=== PATIENT | female | born 1985 | race Caucasian/White ===

== ENCOUNTER 2017-12-04 08:13 | Observation (INO) | payer OTHER ==
[~2017-12-04] VITALS: Ht 170.2 cm; Wt 70.0 kg
[~2017-12-04 08:13] MED LIST: CHLO500T4 PO; META800T PO; NORG1TAB14 PO; ONDA8TAB6 PO; OXYC1TAB12 PO; TRAM50TA2 PO
--- OUTSIDE RECORDS SUMMARY | 2017-12-04 08:19 | XMS REPORT ---
Author Author JODI SOUZA Organization [employer] Address Unknown Phone Unavailable Care Team Providers Care Tie In Hand Name Role Phone JODI SOUZA CP Unavailable Allergies, Adverse Reactions, Alerts Substance Reaction Event Type N.K.D.A. Info Not Available Non Drug Allergy Problems Problem Type Condition Code Onset Dates Condition Status Assessment Contact with or exposure to sexually transmitted disease Z20.2 Active Medications Medication Code System Code Instructions Start Date End Date Status Dosage Chlorzoxazone [facility] [address]-54 not defined Metaxalone [facility] [address]-47 not defined Zofran [facility] [address]-81 not defined Procedures Procedure Coding System Code Date Office Visit, Est Pt., Level 3 CPT-4 18794 August 07, 2015 No Charge CPT-4 71978 August 07, 2015 Vital Signs Date/Time: August 07, 2015 Temperature 99.2 F Weight 146.8 lbs Height 67 in BMI 22.99 Index Blood Pressure Diastolic 82 mmHg Blood Pressure Systolic 128 mmHg Cardiac Monitoring Heart Rate 80 bpm Results No Known Results Summary Purpose [employer] Submission
--- OUTSIDE RECORDS SUMMARY | 2017-12-04 08:19 | XMS REPORT | Continuity of Care Document ---
Author Author [facility] Organization [facility] Address Unknown Phone Unavailable Allergies Active Description Code Type Severity Reaction Onset Reported/Identified Relationship to Patient Clinical Status Yes No Known Drug Allergies [id number] Drug Allergy Unknown N/A 07/20/2007 Medications There is no data. Problems Date Dx Coded Attending Type Code Diagnosis Diagnosed By 12/04/2015 WONG MATA MD, Ot D64.9 ANEMIA, UNSPECIFIED 12/04/2015 WONG MATA MD Ot N92.0 EXCESSIVE AND FREQUENT MENSTRUATION WITH 12/04/2015 WONG MATA MD Ot Z01.812 ENCOUNTER FOR PREPROCEDURAL LABORATORY E 12/04/2015 WONG MATA MD Ot Z11.2 ENCOUNTER FOR SCREENING FOR OTHER BACTER 12/05/2015 WONG MATA MD, Ot D64.9 ANEMIA, UNSPECIFIED 12/05/2015 WONG MATA MD Ot N92.0 EXCESSIVE AND FREQUENT MENSTRUATION WITH 12/05/2015 WONG MATA MD Ot Z01.812 ENCOUNTER FOR PREPROCEDURAL LABORATORY E 12/05/2015 WONG MATA MD Ot Z11.2 ENCOUNTER FOR SCREENING FOR OTHER BACTER 12/05/2015 WONG MATA MD Ot N92.0 EXCESSIVE AND FREQUENT MENSTRUATION WITH 12/05/2015 WONG MATA MD Ot N93.8 OTHER SPECIFIED ABNORMAL UTERINE AND VAG 12/08/2015 WONG MATA MD Ot N92.0 EXCESSIVE AND FREQUENT MENSTRUATION WITH 12/08/2015 WONG MATA MD Ot N93.8 OTHER SPECIFIED ABNORMAL UTERINE AND VAG Procedures There is no data. Results Test Result Range Complete blood count (CBC) with automated white blood cell (WBC) differential - 12/04/15 15:50 Blood leukocytes automated count (number/volume) 6.5 10*3/uL 4.3-11.0 Blood erythrocytes automated count (number/volume) 2.73 10*6/uL 4.35-5.85 Venous blood hemoglobin measurement (mass/volume) 7.9 g/dL 11.5-16.0 Blood hematocrit (volume fraction) 25 % 35-52 Automated erythrocyte mean corpuscular volume 91 [foz_us] 80-99 Automated erythrocyte mean corpuscular hemoglobin (mass per erythrocyte) 29 pg 25-34 Automated erythrocyte mean corpuscular hemoglobin concentration measurement ( mass/volume) 32 g/dL 32-36 Automated erythrocyte distribution width ratio 14.4 % 10.0-14.5 Automated blood platelet count (count/volume) 229 10*3/uL 130-400 Automated blood platelet mean volume measurement 9.1 [foz_us] 7.4-10.4 Automated blood neutrophils/100 leukocytes 65 % 42-75 Automated blood lymphocytes/100 leukocytes 27 % 12-44 Blood monocytes/100 leukocytes 6 % 0-12 Automated blood eosinophils/100 leukocytes 2 % 0-10 Automated blood basophils/100 leukocytes 0 % 0-10 Blood neutrophils automated count (number/volume) 4.3 10*3 1.8-7.8 Blood lymphocytes automated count (number/volume) 1.8 10*3 1.0-4.0 Blood monocytes automated count (number/volume) 0.4 10*3 0.0-1.0 Automated eosinophil count 0.1 10*3/uL 0.0-0.3 Automated blood basophil count (count/volume) 0.0 10*3/uL 0.0-0.1 Methicillin resistant Staphylococcus aureus (MRSA) screening culture - 15:50 Methicillin resistant Staphylococcus aureus (MRSA) screening culture NEG NRG Encounters ACCT No. Visit Date/Time Discharge Status Pt. Type Provider Facility Loc./Unit Complaint [id number] 12/05/2015 13:20:00 12/05/2015 17:50:00 DIS Outpatient WONG MATA MD [facility] DUB;MENORRAGIA [id number] 12/04/2015 15:33:00 12/04/2015 15:55:00 DIS Outpatient WONG MATA MD [facility] DUB;MENORRAGIA [id number] 10/07/2012 12:35:00 10/07/2012 23:59:59 CLS Outpatient [id number] 10/05/2012 14:05:00 10/05/2012 23:59:59 CLS Outpatient
--- NOTE | 2017-12-04 09:22 | ED Abdominal Pain ---
General Chief Complaint: Abdominal/GI Problems Stated Complaint: N/V X2 DAYS Nursing Triage Note: Pt ambulated to rm 7 w/o difficulty. Pt c/o N/V with severe abdominal and back pain for the last two days. Pt states she had diarrhea on the first day. Pt is unsure if she has had fever. Pt states she has had periods of sweats and chills. No fever at time of assessment. Sepsis Screen: No Definite Risk Source of Information: Patient, Family Exam Limitations: No Limitations History of Present Illness Date Seen by Provider: Dec 04, 2017 Time Seen by Provider: 09:19 Initial Comments This 32-year-old white female presents with complaint of diffuse abdominal pain has been present for the last 3 days. The patient has had associated persistent nausea and vomiting. She has had no associated fever, chill, cough, shortness of breath, diarrhea, hematemesis or melena, dysuria, frequency, or flank pain. Patient status post appendectomy. The patient is concerned that she has possible gallbladder disease as this is common within the family. Allergies and Home Medications Allergies Coded Allergies: No Known Drug Allergies (Verified Allergy, Unknown, 07/20/07) Home Medications Chlorzoxazone 500 Mg Tablet, 500 MG PO DAILY, (Reported) Metaxalone 800 Mg Tablet, 800 MG PO DAILY, (Reported) Norgestimate-Ethinyl Estradiol 1 Each Tablet, 1 EACH PO DAILY, (Reported) Ondansetron HCl 8 Mg Tablet, 8 MG PO TID PRN for NAUSEA/VOMITING, (Reported) Oxycodone HCl/Acetaminophen 1 Each Tablet, 1-2 TAB PO Q4H PRN for PAIN Prescribed by: WONG DEJESUS on 12/05/15 1157 Tramadol HCl 50 Mg Tablet, 50 MG PO Q6H PRN for PAIN, (Reported) Patient Home Medication List Home Medication List Reviewed: Yes Review of Systems Constitutional: No chills, No fever EENTM: No Blurred Vision Respiratory: Denies Cough Cardiovascular: Denies Chest Pain Gastrointestinal: Abdominal Pain (across the midepigastrium from left to right. ); Denies Diarrhea; Nausea, Vomiting Genitourinary: No Symptoms Reported Musculoskeletal: no symptoms reported Skin: no symptoms reported Psychiatric/Neurological: No Symptoms Reported Endocrine: No Symptoms Reported Hematologic/Lymphatic: No Symptoms Reported Past Pybatme-Xvmfuy-Owoipe Hx Past Med/Social Hx: Reviewed Nursing Past Med/Soc Hx Patient Social History Alcohol Use: Denies Use Recreational Drug Use: No Smoking Status: Current Everyday Smoker Type Used: Cigarettes Recent Foreign Travel: No Contact w/Someone Who Travel: No Recent Infectious Disease Expo: No Recent Hopitalizations: Yes ( of children ) Physical Abuse: No Sexual Abuse: No Past Medical History Surgeries: Yes (breast augmentation, ) Respiratory: No Cardiac: No Neurological: Yes : No Last Menstrual Period: Nov 29, 2017 Reproductive Disorders: Yes Gastrointestinal: No Musculoskeletal: No Endocrine: No Cancer: No Psychosocial: No Nursing Suicide Risk Score: 0 Integumentary: No Blood Disorders: No Adverse Reaction/Blood Tranf: No Physical Exam Vital Signs Vital Signs - First Documented 12/04/17 08:30 Temp 96.8 Pulse 98 Resp 20 B/P (MAP) 154/101 (118) Pulse Ox 100 O2 Delivery Room Air Capillary Refill : Less Than 3 Seconds Height/Weight/BMI Height: 5'7.00" Weight: 150lbs. 0.0oz. 68.556642ap; 24.63 BMI Method:Estimated General Appearance: WD/WN, moderate distress HEENT: normal ENT inspection Neck: supple, normal inspection Respiratory: lungs clear Cardiovascular: normal peripheral pulses, regular rate, rhythm Gastrointestinal: normal bowel sounds, tenderness (over the epigastric area) Extremities: normal range of motion, non-tender, normal inspection Back: normal inspection Neurologic/Psychiatric: no motor/sensory deficits, alert, normal mood/affect Skin: normal color, warm/dry Progress/Results/Core Measures Results/Orders Lab Results Laboratory Tests Test 12/04/17 08:37 12/04/17 10:00 Range/Units White Blood Count 7.0 4.3-11.0 10^3/uL Red Blood Count 4.43 4.35-5.85 10^6/uL Hemoglobin 13.2 11.5-16.0 G/DL Hematocrit 40 35-52 % Mean Corpuscular Volume 90 80-99 FL Mean Corpuscular Hemoglobin 30 25-34 PG Mean Corpuscular Hemoglobin Concent 33 32-36 G/DL Red Cell Distribution Width 13.7 10.0-14.5 % Platelet Count 277 130-400 10^3/uL Mean Platelet Volume 9.4 7.4-10.4 FL Neutrophils (%) (Auto) 81 H 42-75 % Lymphocytes (%) (Auto) 12 12-44 % Monocytes (%) (Auto) 6 0-12 % Eosinophils (%) (Auto) 1 0-10 % Basophils (%) (Auto) 0 0-10 % Neutrophils # (Auto) 5.6 1.8-7.8 X 10^3 Lymphocytes # (Auto) 0.8 L 1.0-4.0 X 10^3 Monocytes # (Auto) 0.5 0.0-1.0 X 10^3 Eosinophils # (Auto) 0.1 0.0-0.3 10^3/uL Basophils # (Auto) 0.0 0.0-0.1 10^3/uL Sodium Level 137 135-145 MMOL/L Potassium Level 3.4 L 3.6-5.0 MMOL/L Chloride Level 104 98-107 MMOL/L Carbon Dioxide Level 22 21-32 MMOL/L Anion Gap 11 5-14 MMOL/L Blood Urea Nitrogen 9 7-18 MG/DL Creatinine 0.79 0.60-1.30 MG/DL Estimat Glomerular Filtration Rate > 60 BUN/Creatinine Ratio 11 Glucose Level 124 H 70-105 MG/DL Calcium Level 9.4 8.5-10.1 MG/DL Corrected Calcium 8.5-10.1 MG/DL Total Bilirubin 0.3 0.1-1.0 MG/DL Aspartate Amino Transf (AST/SGOT) 25 5-34 U/L Alanine Aminotransferase (ALT/SGPT) 20 0-55 U/L Alkaline Phosphatase 61 40-136 U/L Total Protein 7.8 6.4-8.2 GM/DL Albumin 4.8 H 3.2-4.5 GM/DL Lipase 4893 H 8-78 U/L Serum Test, Qualitative NEGATIVE NEGATIVE Urine Test NEGATIVE NEGATIVE My Orders Orders - KARLI MANE MD Ns Iv 1000 Ml (Sodium Chloride 0.9%) (12/04/17 09:30) Ondansetron Injection (Zofran Injectio (12/04/17 09:30) Fentanyl Injection (Sublimaze Injection (12/04/17 09:30) Cbc With Automated Diff (12/04/17:17) Comprehensive Metabolic Panel (12/04/17 09:17) Ua Culture If Indicated (8/19/18 09:17) Lipase (12/04/17 09:17) Hcg,Qualitative Urine (12/04/17 09:17) Diphenhydramine Injection (Benadryl Inje (12/04/17 10:15) Prochlorperazine Injection (Compazine In (12/04/17 10:15) Ct Abdomen/Pelvis W (12/04/17 10:17) Iohexol Injection (Omnipaque 350 Mg/Ml 1 (12/04/17 10:30) Sodium Chloride Flush (Catheter Flush Sy (12/04/17 10:30) Ns (Ivpb) (Sodium Chloride 0.9%) (12/04/17 10:30) Pharmacy Communication (Pharmacy Communi (12/04/17 10:25) Hcg,Qualitative Serum (12/04/17 10:35) Hydromorphone Injection (Dilaudid Inject (12/04/17 11:30) Medications Given in ED Current Medications Medications Dose Ordered Sig/Wilber Route Start Time Stop Time Status Last Admin Dose Admin Diphenhydramine HCl 25 mg ONCE ONCE IM 12/04/17 10:15 12/04/17 10:16 DC 12/04/17 10:12 25 MG Fentanyl Citrate 50 mcg ONCE ONCE IVP 12/04/17 09:30 12/04/17 09:31 DC 12/04/17 09:24 50 MCG Hydromorphone HCl 1 mg ONCE ONCE IV 12/04/17 11:30 12/04/17 11:31 DC 12/04/17 11:33 1 MG Iohexol 100 ml ONCE ONCE IV 12/04/17 10:30 12/04/17 10:31 DC 12/04/17 10:51 100 ML Ondansetron HCl 4 mg ONCE ONCE IVP 12/04/17 09:30 12/04/17 09:31 DC 12/04/17 09:24 4 MG Prochlorperazine Edisylate 10 mg ONCE ONCE IV 12/04/17 10:15 12/04/17 10:16 DC 12/04/17 10:12 10 MG Sodium Chloride 10 ml NEEDED PRN IV 12/04/17 10:30 12/04/17 10:51 10 ML Sodium Chloride 250 ml ONCE ONCE IV 12/04/17 10:30 12/04/17 10:31 DC 12/04/17 10:51 80 ML Vital Signs/I&O 12/04/17 08:30 Temp 96.8 Pulse 98 Resp 20 B/P (MAP) 154/101 (118) Pulse Ox 100 O2 Delivery Room Air Blood Pressure Mean: 118 Progress Progress Note : Time: 12:04 Progress Note The patient's laboratory evaluation demonstrated a lipase of nearly 5000. The remainder of the laboratory evaluation was essentially unremarkable. CT of the abdomen and pelvis with contrast failed to demonstrate evidence of acute pathology. Treatment course: The patient received IV normal saline, narcotics, and anti-emetics IV. The patient's pain was quite severe after having no improvement in the pain with fentanyl I gave the patient a milligram of Dilaudid IV. I placed call Dr. Adler for his assistance in further evaluation and care of this patient. Departure Communication (Admissions) Time/Spoke to Admitting Phy: 12:06 Dr. Adler was kind enough to admit the patient. Impression Primary Impression: Pancreatitis Qualified Codes: K85.00 - Idiopathic acute pancreatitis without necrosis or infection Disposition: ADMITTED INPATIENT Condition: Improved Admissions Decision to Admit Reason: Admit from ER (General) Decision to Admit/Date: Dec 04, 2017 Time/Decision to Admit Time: 12:06 Departure-Patient Inst. Referrals: JOSE GIMENEZ MD (PCP/Family) Primary Care Physician KARLI MANE MD Dec 04, 2017 09:22
[2017-12-04 09:27] LABS: BASOPHILS % (AUTO) 0 % (0-10); EOSINOPHILS # (AUTO) 0.1 10^3/uL (0.0-0.3); EOSINOPHILS % (AUTO) 1 % (0-10); HEMATOCRIT 40 % (35-52); HEMOGLOBIN 13.2 G/DL (11.5-16.0); LYMPHOCYTES # (AUTO) 0.8 X 10^3 (1.0-4.0); LYMPHOCYTES % (AUTO) 12 % (12-44); MEAN CORPUSCULAR HEMOGLOBIN 30 PG (25-34); MEAN CORPUSCULAR HGB CONC 33 G/DL (32-36); MEAN CORPUSCULAR VOLUME 90 FL (80-99); MEAN PLATELET VOLUME 9.4 FL (7.4-10.4); MONOCYTES # (AUTO) 0.5 X 10^3 (0.0-1.0); MONOCYTES % (AUTO) 6 % (0-12); NEUTROPHILS # (AUTO) 5.6 X 10^3 (1.8-7.8); NEUTROPHILS % (AUTO) 81 % (42-75); PLATELET COUNT 277 10^3/uL (130-400); RED BLOOD COUNT 4.43 10^6/uL (4.35-5.85); RED CELL DISTRIBUTION WIDTH 13.7 % (10.0-14.5)
[2017-12-04] MEDS ORDERED: ONDANSETRON 4 MG/2 ML (SDV) Z0FRAN IVP ONE (09:30)
[2017-12-04] MEDS ORDERED: NS IV 1000 ML 1,000 ML IV SCH (09:30)
[2017-12-04] MEDS ORDERED: fentaNYL INJECTION 100 MCG/2 ML AMP IVP ONE (09:30)
[2017-12-04 09:40] LABS: ALANINE AMINOTRANSFERASE 20 U/L (0-55); ALBUMIN 4.8 GM/DL (3.2-4.5); ALKALINE PHOSPHATASE 61 U/L (40-136); BILIRUBIN,TOTAL 0.3 MG/DL (0.1-1.0); BUN/CREATININE RATIO 11; CALCIUM 9.4 MG/DL (8.5-10.1); CARBON DIOXIDE 22 MMOL/L (21-32); CHLORIDE 104 MMOL/L (98-107); CREATININE SERUM 0.79 MG/DL (0.60-1.30); GFR ESTIMATED > 60; GLUCOSE 124 MG/DL (70-105); POTASSIUM 3.4 MMOL/L (3.6-5.0); SODIUM 137 MMOL/L (135-145); TOTAL PROTEIN 7.8 GM/DL (6.4-8.2)
[2017-12-04] MEDS ORDERED: PROCHLORPERAZINE 10 MG/2ML INJ (COMPAZINE) IV ONE ×2 (10:15→22:30)
[2017-12-04] MEDS ORDERED: diphenhydrAMINE 50 MG/ML INJ (BENADRYL) IM ONE (10:15)
[2017-12-04] MEDS ORDERED: IOHEXOL 350 MG/ML 100 ML (OMNIPAQUE 350) VIAL IV ONE (10:30)
[2017-12-04] MEDS ORDERED: NS 250 ML (IVPB) BAG IV ONE (10:30)
[2017-12-04] MEDS ORDERED: CATHETER FLUSH 10 ML SYR IV PRN (10:30)
[2017-12-04] MEDS ORDERED: HYDROmorphone 2 MG/ML VIAL (DILAUDID) IV ONE (11:30)
--- NOTE | 2017-12-04 11:30 | Diagnostic Imaging Report ---
PROCEDURE: CT abdomen and pelvis with contrast. TECHNIQUE: Multiple contiguous axial images were obtained through the abdomen and pelvis after administration of intravenous contrast. INDICATION: Nausea, vomiting, diarrhea for 3 days with stomach cramping and back pain. History of appendectomy COMPARISON: 02/12/2009 FINDINGS: Lung bases are clear. The heart is normal in size. No liver lesions are seen. The spleen demonstrates heterogeneous perfusion, but is otherwise unremarkable. The adrenal glands and pancreas appears normal. The kidneys appear normal with no hydronephrosis seen. The bowel loops are nondistended without evidence of obstruction. A small amount of free fluid is in the pelvis. There is no free air. A small involuting follicle is seen in the right ovary measuring 1.4 cm. No acute osseous abnormality seen. IMPRESSION: 1. Small involuting follicle in the right ovary with a small amount of free fluid. 2. No other acute abnormality seen in the abdomen or pelvis. Dictated by: Dictated on workstation # [id number]
[2017-12-04 12:35] VITALS: BP 136/78
[2017-12-04] MEDS: NS IV 1000 ML 1,000 ML IV SCH ×2 (13:41→22:09)
[2017-12-04 13:48] LABS: LIPASE 34 U/L (8-78)
[2017-12-04] MEDS ORDERED: ASCO-262 PO (14:05)
[2017-12-04] MEDS ORDERED: ASCO500T6 PO (14:06)
[2017-12-04] MEDS ORDERED: TUMERIC PO (14:06)
[2017-12-04 16:00] VITALS: BP 120/56
[2017-12-04] MEDS: ONDANSETRON 4 MG/2 ML (SDV) Z0FRAN IV PRN ×2 (16:06→20:40)
[2017-12-04] MEDS: HYDROmorphone 2 MG/ML VIAL (DILAUDID) IV PRN ×2 (16:06→20:40)
[2017-12-04 20:49] VITALS: BP 128/83
[2017-12-04] MEDS ORDERED: diphenhydrAMINE 50 MG/ML INJ (BENADRYL) IVP ONE (22:30)
[2017-12-04] MEDS ORDERED: diphenhydrAMINE 50 MG/ML INJ (BENADRYL) ONE (22:56)
[2017-12-04] MEDS ORDERED: PROCHLORPERAZINE 10 MG/2ML INJ (COMPAZINE) ONE (23:09)
[2017-12-05 00:19] VITALS: BP 151/66
[2017-12-05] MEDS: HYDROmorphone 2 MG/ML VIAL (DILAUDID) IV PRN ×2 (01:37→06:21)
[2017-12-05] MEDS: ONDANSETRON 4 MG/2 ML (SDV) Z0FRAN IV PRN ×3 (01:39→12:19)
[2017-12-05 04:32] VITALS: BP 129/77
[2017-12-05 05:55] LABS: BASOPHILS % (AUTO) 1 % (0-10); EOSINOPHILS # (AUTO) 0.1 10^3/uL (0.0-0.3); EOSINOPHILS % (AUTO) 2 % (0-10); HEMATOCRIT 31 % (35-52); HEMOGLOBIN 10.3 G/DL (11.5-16.0); LYMPHOCYTES # (AUTO) 1.3 X 10^3 (1.0-4.0); LYMPHOCYTES % (AUTO) 30 % (12-44); MEAN CORPUSCULAR HEMOGLOBIN 31 PG (25-34); MEAN CORPUSCULAR HGB CONC 34 G/DL (32-36); MEAN CORPUSCULAR VOLUME 91 FL (80-99); MEAN PLATELET VOLUME 9.5 FL (7.4-10.4); MONOCYTES # (AUTO) 0.4 X 10^3 (0.0-1.0); MONOCYTES % (AUTO) 9 % (0-12); NEUTROPHILS # (AUTO) 2.4 X 10^3 (1.8-7.8); NEUTROPHILS % (AUTO) 58 % (42-75); PLATELET COUNT 211 10^3/uL (130-400); RED BLOOD COUNT 3.35 10^6/uL (4.35-5.85); RED CELL DISTRIBUTION WIDTH 13.1 % (10.0-14.5); WHITE BLOOD COUNT 4.2 10^3/uL (4.3-11.0)
[2017-12-05 06:15] LABS: ALANINE AMINOTRANSFERASE 15 U/L (0-55); ALBUMIN 3.6 GM/DL (3.2-4.5); ALKALINE PHOSPHATASE 42 U/L (40-136); BILIRUBIN,TOTAL 0.3 MG/DL (0.1-1.0); BUN/CREATININE RATIO 7; CALCIUM 8.2 MG/DL (8.5-10.1); CARBON DIOXIDE 22 MMOL/L (21-32); CHLORIDE 110 MMOL/L (98-107); CREATININE SERUM 0.67 MG/DL (0.60-1.30); GFR ESTIMATED > 60; GLUCOSE 99 MG/DL (70-105); LIPASE 24 U/L (8-78); POTASSIUM 3.6 MMOL/L (3.6-5.0); SODIUM 138 MMOL/L (135-145); TOTAL PROTEIN 5.7 GM/DL (6.4-8.2)
[2017-12-05] MEDS: NS IV 1000 ML 1,000 ML IV SCH ×2 (06:19→13:53)
[2017-12-05] MEDS: PROCHLORPERAZINE 10 MG/2ML INJ (COMPAZINE) IV PRN ×2 (06:20→15:45)
[2017-12-05 08:00] VITALS: BP 118/60
[2017-12-05] MEDS ORDERED: KETOROLAC 30 MG/ML VIAL IVP NR (08:21)
[2017-12-05] MEDS ORDERED: PROMETHAZINE INJ 25 MG/ML (PHENERGAN) AMP IVP NR (08:24)
[2017-12-05] MEDS ORDERED: HYDROmorphone 2 MG/ML VIAL (DILAUDID) IV PRN (09:15)
--- NOTE | 2017-12-05 10:16 | History & Physical-Hospitalist ---
History of Present Illness HPI/Chief Complaint Pt is a 32yoCF who presented to the ER with a 4 day history of back and stomach pain. She started vomiting and having diarrhea as well. She denies any blood in her stool or emesis. She still does not feel well today. She has no appetite at this time and complains of migraine which has limited her history somewhat due to his discomfort. She denies any sick contacts, fevers, or ingestion of spoiled food. Lab work from the ER originally showed elevated lipase to near 5k but apparently this was a laboratory error as lipase on recheck was normal twice. CT Abd/Pelvis revealed a normal appearing pancreas and kidneys. She was admitted due to intractable nausea and vomiting. Source: patient Exam Limitations: clinical condition (migraine) Date Seen 12/05/17 Time Seen by Provider: 10:16 (10:16) Attending Physician Mack Adler MD PCP Alma Rosa Urbano MD Referring Physician Date of Admission Dec 04, 2017 at 12:03 pm Home Medications & Allergies Home Medications Reviewed patient Home Medication Reconciliation performed by pharmacy medication reconciliations machine technician and/or nursing. Patients Allergies have been reviewed. Allergies Allergies Coded Allergies No Known Drug Allergies (Verified07/20/07) Past Ipnxvac-Refuag-Gkdmeq Hx Past Med/Social Hx: Reviewed Nursing Past Med/Soc Hx Patient Social History Alcohol Use: Occasionally Uses Recreational Drug Use: No Smoking Status: Current Everyday Smoker Cigaretts per day: 10 Type Used: Cigarettes Physical Abuse Screen: No Sexual Abuse: No Recent Foreign Travel: Yes Contact w/other who traveled: Yes Recent Hopitalizations: No Recent Infectious Disease Expo: Yes Seasonal Allergies Seasonal Allergies: Yes Past Medical History Surgeries: Appendectomy, Breast (augmentation) Currently Using CPAP: No Currently Using BIPAP: Yes Neurological: Headaches /Migraines : No Reproductive: Yes Gastrointestinal: Pancreatitis History of Blood Disorders: No Adverse Reaction to Blood Andrews: No Family History Alcoholism G8 SISTER Deafness or hearing loss 19 FATHER 19 MOTHER G8 SISTER G8 SISTER Dementia grandmother Diabetes mellitus G8 SISTER Glaucoma grandmother Hypercholesterolemia 19 FATHER Hypertension 19 FATHER Neoplasm 19 FATHER Seizure disorder daughter Thyroid disease 19 FATHER Review of Systems Constitutional: No chills, No fever EENTM: no symptoms reported Respiratory: no symptoms reported Cardiovascular: no symptoms reported Gastrointestinal: see HPI Genitourinary: no symptoms reported Musculoskeletal: no symptoms reported Skin: no symptoms reported Psychiatric/Neurological: Headache Physical Exam Physical Exam Vital Signs Vital Signs - First Documented 12/04/17 08:30 Temp 96.8 Pulse 98 Resp 20 B/P (MAP) 154/101 (118) Pulse Ox 100 O2 Delivery Room Air Capillary Refill : Less Than 3 Seconds Height, Weight, BMI Height: 5'7.00" Weight: 154lbs. 6.0oz. 70.655219my; 24.2 BMI Method:Estimated General Appearance: No Apparent Distress, WD/WN HEENT: PERRL/EOMI, Moist Mucous Membranes Neck: Non Tender, Supple Respiratory: Lungs Clear, No Respiratory Distress Cardiovascular: Regular Rate, Rhythm, No Murmur Gastrointestinal: Normal Bowel Sounds, Non Tender, Soft Extremity: Normal Capillary Refill, No Calf Tenderness Neurologic/Psychiatric: Alert, Oriented x3, Normal Mood/Affect Skin: Normal Color, Warm/Dry Results Results/Procedures Labs Patient resulted labs reviewed. Imaging: Reviewed Imaging Films, Reviewed Imaging Report Assessment/Plan Admission Diagnosis Intractable Nausea and Vomiting Admission Status: Observation Diagnosis/Problems Diagnosis/Problems (1) Intractable nausea and vomiting Status: Acute Assessment & Plan: Continue current regimen Diet as tolerated Continue pain regimen IVF If able to tolerate diet throughout day can DC home Qualifiers: Vomiting type: unspecified Qualified Codes: R11.2 - Nausea with vomiting, unspecified (2) Migraine Status: Acute Assessment & Plan: Toradol and Phenergan ordered Continue supportive measures Qualifiers: Migraine type: unspecified Status migrainosus presence: without status migrainosus Intractability: not intractable Qualified Codes: G43.909 - Migraine, unspecified, not intractable, without status migrainosus Clinical Quality Measures DVT/VTE Risk/Contraindication: Risk Factor Score Per Nursin RFS Level Per Nursing on Admit: 1=Low/No VTE PPX MARIELY DOVER MD Dec 05, 2017 10:16
[2017-12-05 12:00] VITALS: BP 115/54
[2017-12-05] MEDS ORDERED: KETOROLAC 15 MG/ML VIAL IVP NR (12:30)
[2017-12-05 16:00] VITALS: BP 123/73
[2017-12-05] MEDS ORDERED: ACETAMINOPHEN 500 MG TAB (TYLENOL) PO PRN (16:30)
[2017-12-05] MEDS ORDERED: ONDA4TAB8 SL (17:24)
--- NOTE | 2017-12-05 17:26 | Discharge Inst-Simple/Standard ---
Discharge Inst-Standard Discharge Medications New, Converted or Re-Newed RX: Transmitted to Pharmacy Patient Instructions/Follow Up Plan of Care/Instructions/FU: Please follow up with your Primary Care Provider within the next week to follow up this hospital stay. Please continue to eat a bland diet and slowly reintroduce your normal diet over the next few days; Activity as Tolerated: Yes Discharge Diet: Other Diet Return to The Hospital For: Worsening pain, nausea, diarrhea, blood in vomit or stool, inability to keep anything down, or if you feel you are getting worse. MARIELY DOVER MD Dec 05, 2017 5:26 pm
[2017-12-05 17:47] VITALS: BP 123/73
--- OUTSIDE RECORDS SUMMARY | 2017-12-12 16:44 | XMS REPORT | Continuity of Care Document ---
Author Author [facility] Organization [facility] Address Unknown Phone Unavailable Allergies Active Description Code Type Severity Reaction Onset Reported/Identified Relationship to Patient Clinical Status Yes No Known Drug Allergies [id number] Drug Allergy Unknown N/A 07/20/2007 Medications There is no data. Problems Date Dx Coded Attending Type Code Diagnosis Diagnosed By 12/04/2015 WONG MATA MD, Ot D64.9 ANEMIA, UNSPECIFIED 12/04/2015 WONG MATA MD, Ot N92.0 EXCESSIVE AND FREQUENT MENSTRUATION WITH [...] ABNORMAL UTERINE AND VAG 12/08/2015 WONG MATA MD, Ot N92.0 EXCESSIVE AND FREQUENT MENSTRUATION WITH [...] Status Pt. Type Provider Facility Loc./Unit Complaint [id number] 12/04/2017 12:03:00 12/05/2017 17:51:00 DIS Inpatient ROCIO TIDWELL, KARLI Hernández [facility] 4TH ACUTE PANCREATITIS [id number] 12/05/2015 13:20:00 12/05/2015 17:50:00 DIS Outpatient WONG MATA MD [facility] DUB;MENORRAGIA [id number] 12/04/2015 15:33:00 12/04/2015 15:55:00 DIS Outpatient ESPERANZA TIDWELL, WONG [facility] PREOP DUB;MENORRAGIA [id number] 10/07/2012 12:35:00 10/07/2012 23:59:59 CLS Outpatient [id number] 10/05/2012 14:05:00 10/05/2012 23:59:59 CLS Outpatient [id number] 12/04/2017 08:15:00 Document Registration
== END 2017-12-05 17:30 | disposition home or self-care (01) ==
LOC: EDUNIT# 08:13 → ER 08:15 → 4TH 11:45 → UNDOADMIN 12:03 → UNDODISIN 12-05 17:51
PROVIDERS: ADMIT Internal Medicine; ATTEND Internal Medicine
DX: R11.2 Nausea with vomiting, unspecified (principal); G43.909 Migraine, unspecified, not intractable, without status migrainosus; F17.210 Nicotine dependence, cigarettes, uncomplicated; R10.13 Epigastric pain; M54.9 Dorsalgia, unspecified; Z98.82 Breast implant status
CPT/HCPCS: 36415; 74177; 80053; 83690; 84703; 85025; 96361; 96372; 96374; 96375; G0378

== ENCOUNTER 2018-03-14 16:11 | Emergency (ER) | payer SELFPAY ==
[~2018-03-14] VITALS: Ht 170.2 cm; Wt 61.7 kg
[~2018-03-14 16:11] MED LIST changes: +ASCO-262 PO; +ASCO500T6 PO; +ONDA4TAB8 SL; +TUMERIC PO
--- OUTSIDE RECORDS SUMMARY | 2018-03-14 16:16 | XMS REPORT | Continuity of Care Document ---
Author Author [facility] Organization [facility] Address Unknown Phone Unavailable Allergies Active Description Code Type Severity Reaction Onset Reported/Identified Relationship to Patient Clinical Status Yes No Known Drug Allergies [id number] Drug Allergy Unknown N/A 07/20/2007 Medications There [...] Ot D64.9 ANEMIA, UNSPECIFIED 12/05/2015 WONG MATA MD, Ot N92.0 EXCESSIVE AND FREQUENT MENSTRUATION WITH 12/05/2015 WONG MATA MD Ot Z01.812 ENCOUNTER FOR PREPROCEDURAL LABORATORY E 12/05/2015 WONG MATA MD, Ot Z11.2 ENCOUNTER FOR SCREENING FOR OTHER BACTER 12/05/2015 WONG MATA MD, Ot N92.0 EXCESSIVE AND FREQUENT MENSTRUATION WITH 12/05/2015 WONG MATA MD Ot N93.8 OTHER SPECIFIED ABNORMAL UTERINE AND VAG 12/08/2015 WONG MATA MD, Ot N92.0 EXCESSIVE AND FREQUENT MENSTRUATION WITH 12/08/2015 WONG MATA MD Ot N93.8 OTHER SPECIFIED ABNORMAL UTERINE AND VAG 12/05/2017 KARLI CHAN MD Ot F17.210 NICOTINE DEPENDENCE, CIGARETTES, UNCOMPL 12/05/2017 KARLI CHAN MD Ot G43.909 MIGRAINE, UNSP, NOT INTRACTABLE, WITHOUT 12/05/2017 ROCIO TIDWELL, KARLI Hernández Ot M54.9 DORSALGIA, UNSPECIFIED 12/05/2017 ROCIO TIDWELL, KARLI Hernández Ot R10.13 EPIGASTRIC PAIN 12/05/2017 KARLI CHAN MD, Ot R11.2 NAUSEA WITH VOMITING, UNSPECIFIED 12/05/2017 KARLI CHAN MD, Ot Z98.82 BREAST IMPLANT STATUS Procedures There is no data. Results Test [...] Status Pt. Type Provider Facility Loc./Unit Complaint [id number] 12/04/2017 11:45:00 12/05/2017 17:30:00 DIS Inpatient ROCIO TIDWELL, KARLI Hernández [facility] 4TH ACUTE PANCREATITIS [id number] 12/05/2015 13:20:00 12/05/2015 17:50:00 DIS Outpatient WONG MATA MD [facility] DUB;MENORRAGIA [id number] 12/04/2015 15:33:00 12/04/2015 15:55:00 DIS Outpatient WONG MATA MD [facility] PREOP DUB;MENORRAGIA [id number] 10/07/2012 12:35:00 10/07/2012 23:59:59 CLS Outpatient [id number] 10/05/2012 14:05:00 10/05/2012 23:59:59 CLS Outpatient [id number] 12/04/2017 08:15:00 Document Registration
--- NOTE | 2018-03-14 16:45 | ED General ---
General Chief Complaint: Upper Extremity Stated Complaint: R ARM SWOLLEN Source of Information: Patient Exam Limitations: No Limitations History of Present Illness Date Seen by Provider: Mar 14, 2018 Time Seen by Provider: 16:30 Initial Comments Here with report of pain to the right scapular area and concerns about right arm swelling. Feels a spot between her scapula and spine that is swollen and it hurts there. States it hurts to take a deep breath. 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 She is right-hand dominant. Timing/Duration: 3-4 Days Severity: Moderate Associated Systoms: No Chest Pain, No Cough, No Fever/Chills, No Shortness of Air, No Weakness Allergies and Home Medications Allergies Coded Allergies: No Known Drug Allergies (Verified , 07/20/07) Home Medications Ascorbic Acid 500 Mg Tablet, 500 MG PO DAILY, (Reported) Cyclobenzaprine HCl 10 Mg Tablet, 10 MG PO Q8H PRN for SPASMS Prescribed by: AGATA DAMICO on 03/14/18 1649 Ondansetron 4 Mg Tab.rapdis, 4 MG SL Q4H PRN for NAUSEA/VOMITING-1ST LINE Prescribed by: MARIELY DOVER on 12/05/17 1724 [Tumeric] , 1 EA PO DAILY, (Reported) Patient Home Medication List Home Medication List Reviewed: Yes Review of Systems Review of Systems Constitutional: see HPI; No chills, No fever Respiratory: see HPI; No cough, No dyspnea on exertion Cardiovascular: no symptoms reported Gastrointestinal: no symptoms reported Musculoskeletal: see HPI, muscle pain, muscle stiffness Skin: no symptoms reported Past Xqppwwk-[id number]-Hyrsxy Hx Past Med/Social Hx: Reviewed Nursing Past Med/Soc Hx Patient Social History Alcohol Use: Denies Use Recreational Drug Use: No Type Used: Cigarettes Recent Foreign Travel: No Contact w/Someone Who Travel: No Recent Hopitalizations: No Physical Abuse: No Sexual Abuse: No Seasonal Allergies Seasonal Allergies: Yes Past Medical History Surgeries: Yes Appendectomy Respiratory: No Currently Using CPAP: No Currently Using BIPAP: Yes Cardiac: No Neurological: No Headaches /Migraines Reproductive Disorders: Yes Genitourinary: No Gastrointestinal: No Pancreatitis Musculoskeletal: No Endocrine: No HEENT: No Cancer: No Psychosocial: No Integumentary: No Blood Disorders: No Adverse Reaction/Blood Tranf: No Family Medical History Reviewed Nursing Family Hx Alcoholism G8 SISTER Deafness or hearing loss 19 FATHER 19 MOTHER G8 SISTER G8 SISTER Dementia grandmother Diabetes mellitus G8 SISTER Glaucoma grandmother Hypercholesterolemia 19 FATHER Hypertension 19 FATHER Neoplasm 19 FATHER Seizure disorder daughter Thyroid disease 19 FATHER Physical Exam Vital Signs Vital Signs - First Documented 03/14/18 16:11 Temp 99.0 Pulse 122 Resp 18 B/P (MAP) 151/100 (117) Pulse Ox 100 O2 Delivery Room Air Capillary Refill : Height, Weight, BMI Height: 5'7.00" Weight: 154lbs. 6.0oz. 70.016653av; 24.2 BMI Method:Estimated General Appearance: No Apparent Distress, WD/WN Neck: Non Tender, Supple Respiratory: Lungs Clear, Normal Breath Sounds Cardiovascular: Regular Rate, Rhythm, No Murmur Back: No CVA Tenderness, No Vertebral Tenderness, Muscle Spasm, Other (tender between the area of the scapula and spine on the right with obvious muscle spasm to the area of the rhomboid muscles) Extremity: Normal Inspection, Normal Range of Motion, Non Tender, No Calf Tenderness Neurologic/Psychiatric: Alert, Oriented x3 Skin: Normal Color, Warm/Dry Progress/Results/Core Measures Suspected Sepsis SIRS Temperature: Pulse: Respiratory Rate: Blood Pressure / Mean: Results/Orders Vital Signs/I&O 03/14/18 16:11 Temp 99.0 Pulse 122 Resp 18 B/P (MAP) 151/100 (117) Pulse Ox 100 O2 Delivery Room Air Capillary Refill : Progress Note : Progress Note seen and evaluated. No significant findings other than the rhomboid injury. We discussed about supportive care for that. Discharged home with return precautions. Patient verbalize understanding instructions and agreement with plan. We will give hydrocodone 5/325 one tab by mouth as well as 10 mg of cyclobenzaprine here prior to discharge Departure Impression Primary Impression: Rhomboid muscle strain Qualified Codes: S29.012A - Strain of muscle and tendon of back wall of thorax , initial encounter Disposition: 01 HOME, SELF-CARE Condition: Improved Departure-Patient Inst. Decision time for Depature: 16:44 Referrals: JOSE GIMENEZ MD (PCP/Family) Primary Care Physician Patient Instructions: Muscle Strain (DC), Upper Back Pain (DC) Add. Discharge Instructions: All discharge instructions reviewed with patient and/or family. Voiced understanding. You may take ibuprofen 600-800 mg every 8 hours as needed for pain. You may take Tylenol/acetaminophen 1000 mg every 8 hours as needed for pain. Take other medications as prescribed. You may use [id number] lidocaine preparation such as icy hot with lidocaine patches, Aspercreme with lidocaine patches for salonpas patches with lidocaine to area of concern per package directions. Follow up with your Dr. in a few days for recheck. Return for worse pain, weakness, numbness, breathing problems or other concerns as needed. Scripts Cyclobenzaprine HCl (Cyclobenzaprine HCl) 10 Mg Tablet 10 MG PO Q8H PRN for SPASMS, #15 TAB 0 Refills Prov: AGATA DAMICO MD 03/14/18 AGATA DAMICO MD Mar 14, 2018 16:45
[2018-03-14] MEDS ORDERED: CYCLOBENZAPRINE 10 MG (FLEXERIL) TAB PO STA (16:49)
[2018-03-14] MEDS ORDERED: HYDROcodone/APAP 5 MG/325 MG (LORTAB) TAB PO STA (16:49)
[2018-03-14] MEDS ORDERED: CYCL10TA9 PO (16:49)
[2018-03-14 16:58] VITALS: BP 154/99
== END 2018-03-14 16:58 | disposition home or self-care (01) ==
LOC: EDUNIT# 16:11 → ER 16:12
DX: S29.012A Strain of muscle and tendon of back wall of thorax, initial encounter (principal); G43.909 Migraine, unspecified, not intractable, without status migrainosus; Z82.49 Family history of ischemic heart disease and other diseases of the circulatory system; Z87.19 Personal history of other diseases of the digestive system; Z90.89 Acquired absence of other organs; X50.0XXA Overexertion from strenuous movement or load, initial encounter; Y92.59 Other trade areas as the place of occurrence of the external cause; Y99.0 Civilian activity done for income or pay
CPT/HCPCS: 99283